=== PATIENT | female | born 1945 | race American Indian/Alaskan Native ===

== ENCOUNTER 2016-11-18 19:27 | Emergency (ER) | payer OTHER ==
[2016-11-18 19:35] VITALS: BP 104/66; PULSE 68; TEMP 98; BMI 24.6
--- NOTE | 2016-11-18 20:03 | PDOC ---
History of Present Illness - General History Source: Patient Exam Limitations: No Limitations - History of Present Illness Initial Comments: 11/18/16 20:11 The patient is a 71 year old female with significant history of COPD who presents to the ED complaining of approximately 4 days of nonproductive cough. She states was started on Azithromycin by her email administrator approximately 3 days ago, but she has not noticed any significant improvement. She states she also began to experience mild wheezing and became concerned about pneumonia, prompting her to come to the ED. The patient also complains of associated mild subjective fever, diffuse headache, and sore throat. No abdominal pain, nausea, vomiting or diarrhea. No hematuria or dysuria. No neck pain. No chest pain or palpitations. <Renetta Wheeler - Last Filed: 11/18/16 20:11> - General History Source: Patient <Rob Laurent - Last Filed: 11/18/16 21:11> - General Chief Complaint: Respiratory Stated Complaint: COLD SYMPTOMS Time Seen by Provider: 11/18/16 19:47 Past History <Renetta Wheeler - Last Filed: 11/18/16 20:11> - Past Medical History COPD: Yes ("chronic bronchitis") Other medical history: herniated dics in spine - Surgical History Abdominal Surgery: Yes Appendectomy: Yes - Immunization History Immunization Up to Date: Yes - Psycho/Social/Smoking Cessation Hx Anxiety: No Suicidal Ideation: No Smoking Status: Yes Smoking History: Former smoker Have you smoked in the past 12 months: No Number of Cigarettes Smoked Daily: 0 If you are a former smoker, when did you quit?: 1996 Information on smoking cessation initiated: No Hx Alcohol Use: No Drug/Substance Use Hx: No Substance Use Type: None <Rob Laurent - Last Filed: 11/18/16 21:11> - Past Medical History Allergies/Adverse Reactions: Allergies Allergy/AdvReac Type Severity Reaction Status Date / Time Penicillins AdvReac Verified 11/18/16 19:29 Home Medications: Ambulatory Orders Fluticasone Propionate [Flovent Diskus] 250 mcg IH BID 02/13/16 Tiotropium [place] [Spiriva] 1 inh PO DAILY 02/13/16 Albuterol Sulfate Inhaler - [Ventolin Hfa Inhaler -] 1 - 2 inh PO Q4H PRN Guaifenesin AC [Robitussin AC -] 5 ml PO TID #60 liquid MDD 15 11/18/16 Loratadine [Claritin] 10 mg PO DAILY #30 tablet 11/18/16 Methylprednisolone [Medrol Dose [place]] 4 mg PO ASDIR #21 tablet 11/18/16 Review of Systems - Review of Systems Able to Perform ROS?: Yes Comments:: 11/18/16 20:18 GENERAL/CONSTITUTIONAL: +Subjective fever. No weakness. HEAD, EYES, EARS, NOSE AND THROAT: +Sore throat. No change in vision. No ear pain or discharge. CARDIOVASCULAR: No chest pain, palpitations, lightheadedness. RESPIRATORY: Nonproductive cough, mild wheezing. GASTROINTESTINAL: No nausea, vomiting, diarrhea or constipation. GENITOURINARY: No dysuria, frequency, or change in urination. MUSCULOSKELETAL: No joint or muscle swelling or pain. No neck or back pain. SKIN: No rash NEUROLOGIC: +Headache. No vertigo, loss of consciousness, or change in strength/ sensation. ENDOCRINE: No increased thirst. No abnormal weight change. HEMATOLOGIC/LYMPHATIC: No anemia, easy bleeding, or history of blood clots. ALLERGIC/IMMUNOLOGIC: No hives or skin allergy. <Renetta Wheeler - Last Filed: 11/18/16 20:11> *Physical Exam - Vital Signs Last Vital Signs Temp Pulse Resp BP Pulse Ox 98.0 F 68 20 104/66 99 11/18/16 19:29 11/18/16 19:29 11/18/16 19:29 11/18/16 19:29 11/18/16 19:29 - Physical Exam Comments: 11/18/16 20:20 GENERAL: Awake, alert, and fully oriented, in no acute distress HEAD: No signs of trauma EYES: PERRLA, EOMI, sclera anicteric, conjunctiva clear ENT: Mild erythema of the posterior oropharynx, no exudates. Auricles normal inspection, hearing grossly normal, nares patent. Moist mucosa NECK: Normal ROM, supple, no lymphadenopathy, JVD, or masses LUNGS: Upper airway transmission sounds, but no rhonchi, wheezes, or crackles. HEART: Regular rate and rhythm, normal S1 and S2, no murmurs, rubs or gallops ABDOMEN: Soft, nontender, normoactive bowel sounds. No guarding, no rebound. No masses EXTREMITIES: Normal range of motion, no edema. No clubbing or cyanosis. No cords, erythema, or tenderness NEUROLOGICAL: Cranial nerves II through XII grossly intact. Normal speech, normal gait SKIN: Warm, Dry, normal turgor, no rashes or lesions noted. <Renetta Wheeler - Last Filed: 11/18/16 20:11> - Vital Signs Last Vital Signs Temp Pulse Resp BP Pulse Ox 98.0 F 68 20 104/66 99 11/18/16 19:29 11/18/16 19:29 11/18/16 19:29 11/18/16 19:29 11/18/16 19:29 <Rob Laurent - Last Filed: 11/18/16 21:11> Medical Decision Making - Medical Decision Making 11/18/16 21:10 Dr. Laurent: The scribe's documentation has been prepared under my direction and personally reviewed by me in its entirery. I confirm that the note above accurately reflects all work, treatment, procedures, and medical decision making performed by me. Pt with exacerbation of COPD. chest xray is negative for infiltrate. Pt to have a total of three Duo nebs and discharged with Medrol dosepak and Robitussin AC <Rob Laurent - Last Filed: 11/18/16 21:11> *DC/Admit/Observation/Transfer - Attestations Scribe Attestion: 11/18/16 20:21 Documentation prepared by Renetta Wheeler, acting as medical psychotherapist for Rob Laurent DO. <Renetta Wheeler - Last Filed: 11/18/16 20:11> - Discharge Dispostion Admit: No <Rob Laurent - Last Filed: 11/18/16 21:11> Diagnosis at time of Disposition: COPD exacerbation - Discharge Dispostion Disposition: HOME Condition at time of disposition: Stable - Prescriptions Prescriptions: Loratadine [Claritin] 10 mg PO DAILY #30 tablet Methylprednisolone [Medrol Dose [place]] 4 mg PO ASDIR #21 tablet Guaifenesin AC [Robitussin AC -] 5 ml PO TID #60 liquid MDD 15 - Referrals Referrals: Dirk Hood [Primary Care Provider] - - Patient Instructions Printed Discharge Instructions: DI for Chronic Obstructive Pulmonary Disease
[2016-11-18] MEDS ORDERED: predniSONE 20 MG TABLET (UD) ONE (20:07)
[2016-11-18] MEDS ORDERED: ALBUTEROL SO4 2.5/IPRATROPIUM 0.5 INH SOL 3 ML VIAL.NEB. NEB STA ×3 (20:08→21:07)
[2016-11-18] MEDS ORDERED: predniSONE 20 MG TABLET (UD) PO ONE (20:08)
== END 2016-11-18 21:19 | disposition home or self-care (01) ==
LOC: JER 19:27
PROC: 3E0F7GC Introduction of Other Therapeutic Substance into Respiratory Tract, Via Natural or Artificial Opening (ICD-10-PCS; principal; 2016-11-18)
DX: J44.1 Chronic obstructive pulmonary disease with (acute) exacerbation (principal); Z87.891 Personal history of nicotine dependence
CPT/HCPCS: 71020-TC; 99282-25

== ENCOUNTER 2023-01-16 10:52 | Emergency (ER) | payer OTHER ==
[2023-01-16 10:59] VITALS: RESP 18; TEMP 97; BMI 26.4
[2023-01-16 12:34] LABS: URINE APPEARANCE CLEAR; URINE BILIRUBIN NEGATIVE (NEGATIVE); URINE COLOR YELLOW; URINE GLUCOSE (UA) NEGATIVE (NEGATIVE); URINE KETONE NEGATIVE (NEGATIVE); URINE LEUK ESTERASE NEGATIVE (NEGATIVE); URINE NITRITE NEGATIVE (NEGATIVE); URINE PROTEIN NEGATIVE (NEGATIVE); URINE UROBILINOGEN 0.2 mg/dL (0.2-1.0)
[2023-01-16] MEDS ORDERED: LIDOCAINE HCL 2% JELLY 10 ML CARTRIDGE PR ONE (13:54)
[2023-01-16] MEDS ORDERED: LIDOCAINE HCL 2% JELLY 10 ML CARTRIDGE ONE (14:39)
[2023-01-16 17:01] VITALS: BP 128/50; PULSE 73
== END 2023-01-16 16:59 | disposition home or self-care (01) ==
LOC: JER 10:52
PROC: 0T9B7ZZ Drainage of Bladder, Via Natural or Artificial Opening (ICD-10-PCS; principal; 2023-01-16)
DX: K59.00 Constipation, unspecified (principal); R33.9 Retention of urine, unspecified
CPT/HCPCS: 81003; 87086; 99283-25

== ENCOUNTER 2024-05-18 16:13 | Observation (INO) | payer OTHER ==
[2024-05-18 18:33] LABS: BASO % 1.2 % (0-2.0); EOS % 1.3 % (0-4.5); HEMATOCRIT 38.2 % (32.4-45.2); HEMOGLOBIN 12.8 GM/dL (10.7-15.3); LYMPH % 27.5 % (8-40); MCH 29.5 pg (25.7-33.7); MCHC 33.5 g/dl (32.0-36.0); MEAN CELL VOLUME 88.3 fl (80-96); MEAN PLT VOLUME 6.5 fl (7.5-11.1); MONO % 6.9 % (3.8-10.2); NEUT % 63.1 % (42.8-82.8); PLATELET COUNT 240 10^3/uL (134-434); RBC 4.33 M/mm3 (3.60-5.2); RDW 13.9 % (11.6-15.6); WHITE BLOOD COUNT 5.5 K/mm3 (4.0-10.0)
[2024-05-18 18:34] LABS: VENOUS BASE EXCESS 1.5 mmol/L (-2-2); VENOUS O2 SATURATION 47.7 % (70-80); VENOUS PCO2 46.2 mmHg (38-52); VENOUS PH 7.386 (7.310-7.410)
[2024-05-18 18:57] LABS: ALBUMIN 3.6 g/dl (3.4-5.0); CALCIUM 9.2 mg/dL (8.5-10.1)
[2024-05-18 18:58] LABS: BLOOD UREA NITROGEN 11.1 mg/dL (7-18)
[2024-05-18 19:01] LABS: CREATININE 0.7 mg/dL (0.55-1.3)
[2024-05-18 19:02] LABS: BILIRUBIN,TOTAL 0.4 mg/dL (0.2-1)
[2024-05-18 19:05] LABS: N-TERMINAL BNP 167.9 pg/ml (5-450)
[2024-05-18] MEDS ORDERED: ACETAMINOPHEN 325 MG TABLET (FP) PO PRN (21:20)
[2024-05-19 03:25] VITALS: BMI 22.8
[2024-05-19 07:51] LABS: HEMATOCRIT 37.9 % (32.4-45.2); HEMOGLOBIN 12.6 GM/dL (10.7-15.3); MCH 29.6 pg (25.7-33.7); MCHC 33.2 g/dl (32.0-36.0); MEAN CELL VOLUME 89.1 fl (80-96); MEAN PLT VOLUME 7.8 fl (7.5-11.1); PLATELET COUNT 210 10^3/uL (134-434); RBC 4.25 M/mm3 (3.60-5.2); RDW 13.9 % (11.6-15.6)
[2024-05-19 08:08] LABS: POTASSIUM 3.7 mmol/L (3.5-5.1)
[2024-05-19 08:11] LABS: BLOOD UREA NITROGEN 14.5 mg/dL (7-18); CALCIUM 8.9 mg/dL (8.5-10.1); MAGNESIUM 2.3 mg/dL (1.8-2.4)
[2024-05-19 08:14] LABS: CREATININE 0.7 mg/dL (0.55-1.3)
[2024-05-19 08:15] LABS: PHOSPHOROUS 3.2 mg/dL (2.5-4.9)
[2024-05-19] MEDS: TAMSULOSIN HCL 0.4 MG CAP PO SCH (09:06)
[2024-05-19] MEDS ORDERED: ALBUTEROL SO4 HFA INHALER IH PRN (10:05)
[2024-05-21 10:03] VITALS: BP 117/53; PULSE 69; RESP 18; TEMP 98.8
== END 2024-05-21 16:41 | disposition home or self-care (01) ==
LOC: JER 16:13 → JERBED 19:39 → J4S 05-19 02:21
PROVIDERS: ADMIT Internal Medicine; ATTEND Internal Medicine
DX: J44.9 Chronic obstructive pulmonary disease, unspecified (principal); I20.89 Other forms of angina pectoris; M81.0 Age-related osteoporosis without current pathological fracture; Z88.0 Allergy status to penicillin; Z91.012 Allergy to eggs
CPT/HCPCS: 0241U-QW; 36415; 71045-TC-FY; 71260-TC; 80048; 80053; 82803; 83735; 83880; 84100; 84484; 85025; 85027; 93005; 93010; 99285-25; G0378